=== PATIENT | female | born 1995 | race Two or more races ===

== ENCOUNTER → 2020-03-08 | Outpatient (CLI) | payer BC ==
[2020-03-08 10:21] LABS: Basophils # (auto) 0.1 10 ^3/uL (0-0.2); Basophils % (auto) 0.5 % (0.0-2.0); Eosinophils # (auto) 0 10 ^3/uL (0-0.8); Eosinophils % (auto) 0.4 % (0.0-7.0); Hematocrit 41.5 % (36.0-46.0); Hemoglobin 13.9 g/dL (12.2-16.2); Lymphocytes # (auto) 2.2 10 ^3/uL (0.4-5.4); Lymphocytes % (auto) 17.1 % (10.0-50.0); Mean Corpuscular Hemoglobin 29.9 pg (28.0-32.0); Mean Corpuscular Hgb Conc. 33.6 g/dL (32.0-36.0); Mean Corpuscular Volume 89.2 fL (80.0-100.0); Monocytes # (auto) 0.7 10 ^3/uL (0-1.3); Monocytes % (auto) 5.1 % (0.0-12.0); Neutrophils % (auto) 76.9 % (37.0-80.0); Platelet Count (auto) 289 10^3/uL (140-450); Red Blood Cells 4.66 10^6/uL (4.0-5.20); Red Cell Distribution Width 14.2 % (11.8-14.3)
[2020-03-08 10:36] LABS: Alcohol, Urine < 3.0 mg/dL (0-5); Amphetamine Screen, Urine NEGATIVE (NEGATIVE); Barbiturate Scree,Urine NEGATIVE (NEGATIVE); Benzodiazephine Screen, Urine NEGATIVE (NEGATIVE); Cannabinoid Screen, Urine POSITIVE (NEGATIVE); Cocaine Screen, Urine NEGATIVE (NEGATIVE); Opiate Scree,Urine NEGATIVE (NEGATIVE); Phencyclidine Screen, Urine NEGATIVE (NEGATIVE)
[2020-03-09 04:09] LABS: RPR Non Reactive (Non Reactive)
== END | disposition home or self-care (01) ==
LOC: LAB 09:47
PROVIDERS: ATTEND Obstetrics & Gynecology
DX: N39.0 Urinary tract infection, site not specified (principal); Z36.0 Encounter for antenatal screening for chromosomal anomalies; Z31.430 Encounter of female for testing for genetic disease carrier status for procreative management; Z34.80 Encounter for supervision of other normal pregnancy, unspecified trimester
CPT/HCPCS: 36415; 80307; 81220; 83036; 84112; 85025; 86592; 86703; 86762; 86850; 86900; 86901; 87086; 87340

== ENCOUNTER 2020-10-01 09:55 | Observation (INO) | payer BC, MEDICAID ==
[2020-10-01] MEDS ORDERED: PREN-96 PO (12:09)
== END 2020-10-01 12:10 | disposition home or self-care (01) ==
LOC: LDRP 09:55
PROVIDERS: ADMIT Obstetrics & Gynecology; ATTEND Obstetrics & Gynecology
DX: O48.0 Post-term pregnancy (principal); Z3A.40 40 weeks gestation of pregnancy
CPT/HCPCS: 59025; 76818; 81002; G0378

== ENCOUNTER 2020-10-02 00:15 | Inpatient (IN) | payer MEDICAID ==
[~2020-10-02] VITALS: Ht 170.2 cm; Wt 98.4 kg
[~2020-10-02 00:15] MED LIST: PREN-96 PO
[2020-10-02] MEDS ORDERED: LIDOCAINE 2%HCL (LOCAL ANESTH.) INJ 20ML MDV IJ ONE (01:45)
[2020-10-02] MEDS ORDERED: BUTORPHANOL TARTRATE 2 MG/1 ML VIAL IV PRN ×2 (01:45)
[2020-10-02] MEDS ORDERED: PHISODERM TOP SOLN 240ML BTL TOP PRN (01:45)
[2020-10-02] MEDS ORDERED: PROMETHAZINE HCL 25 MG/ML 1ML IV PRN (01:45)
[2020-10-02 02:11] LABS: Albumin 2.8 g/dL (3.4-5.0); Calcium 8.6 mg/dL (8.5-10.1); Potassium 3.7 mmol/L (3.5-5.1)
[2020-10-02 02:14] LABS: Bilirubin, Total 0.3 mg/dL (0.2-1.0); Total Protein 7.2 g/dL (6.4-8.2)
[2020-10-02] MEDS ORDERED: TERBUTALINE SULFATE 1 MG/ML 1ML VIAL SC ONE (02:15)
[2020-10-02] MEDS ORDERED: LACT. RINGERS/OXYTOCIN 20UNITS 1,000 ML IV ONE ×3 (02:15→08:15)
[2020-10-02] MEDS ORDERED: LACT. RINGERS/OXYTOCIN 20UNITS 1,000 ML IV SCH ×2 (02:15→09:15)
[2020-10-02 02:27] LABS: Urine Amorphous Crystal FEW /hpf (None Seen); Urine Bacteria FEW /hpf (None Seen); Urine Blood 1+ /uL (Negative); Urine Mucus FEW (None Seen); Urine Specific Gravity 1.015 (1.001-1.035); Urine WBC 5 /hpf (0 - 5)
[2020-10-02 02:30] LABS: Basophils # (auto) 0 10 ^3/uL (0-0.2); Basophils % (auto) 0.2 % (0.0-2.0); Eosinophils # (auto) 0.1 10 ^3/uL (0-0.8); Eosinophils % (auto) 0.7 % (0.0-7.0); Hematocrit 39.1 % (36.0-46.0); Lymphocytes # (auto) 2.9 10 ^3/uL (0.4-5.4); Lymphocytes % (auto) 20.4 % (10.0-50.0); Mean Corpuscular Hemoglobin 28.8 pg (28.0-32.0); Mean Corpuscular Hgb Conc. 33.2 g/dL (32.0-36.0); Mean Corpuscular Volume 86.8 fL (80.0-100.0); Monocytes % (auto) 6.8 % (0.0-12.0); Neutrophils # (auto) 10.2 10 ^3/uL (1.6-8.6); Neutrophils % (auto) 71.9 % (37.0-80.0); Nucleated Red Blood Cells % 0.3 %; Platelet Count (auto) 218 10^3/uL (140-450); Red Blood Cells 4.51 10^6/uL (4.0-5.20); Red Cell Distribution Width 15.2 % (11.8-14.3); White Blood Cell 14.2 10^3/uL (4.4-10.8)
[2020-10-02 02:37] LABS: Alcohol, Urine < 3.0 mg/dL (0-10); Amphetamine Screen, Urine NEGATIVE (NEGATIVE); Barbiturate Scree,Urine NEGATIVE (NEGATIVE); Benzodiazephine Screen, Urine NEGATIVE (NEGATIVE); Cannabinoid Screen, Urine NEGATIVE (NEGATIVE); Cocaine Screen, Urine NEGATIVE (NEGATIVE); Phencyclidine Screen, Urine NEGATIVE (NEGATIVE)
[2020-10-02 02:43] LABS: INR 0.91 (0.9-1.15); Partial Thromboplastin Time 27.1 sec (23.0-31.2)
[2020-10-02 02:48] LABS: Opiate Scree,Urine NEGATIVE (NEGATIVE)
[2020-10-02] MEDS: WITCH HAZEL-GLYCERIN PAD TOP PRN (03:17)
[2020-10-02] MEDS: DERMOPLAST 60ML BOTTLE TOP PRN (03:17)
[2020-10-02] MEDS: LACTATED RINGER'S 1,000 ML IV SCH ×2 (03:19→04:23)
[2020-10-02] MEDS: IBUPROFEN 600 MG TAB PO PRN ×4 (08:30→23:32)
--- NOTE | 2020-10-02 09:00 | NUR ---
Patient ambulated with standby assist of RN to restroom. Educated on pericare, patient demonstrated proper technique. Patient voided 500ml of urine without difficulty. All bed linens changed, bad changed into a bed. Patient ambulated to bed without difficulty. Denied dizziness or pain. Tolerated well. Educated on need to call for assistance before next void. Verbalized understanding.
--- NOTE | 2020-10-02 10:00 | NUR ---
Patient ambulated to restroom with standby assist of RN. Tolerated well. Void 600ml. Pericare performed independently. Ambulated back to bed with steady gait. No distress noted.
[2020-10-02 11:00] VITALS: BP 95/51
[2020-10-02] MEDS: DOCUSATE CALCIUM 240 MG CAP PO SCH (11:30)
--- NOTE | 2020-10-02 14:30 | NUR ---
Social work, Yari at bedside. Stated patient is cleared for discharge.
[2020-10-02 15:00] VITALS: BP 99/54
--- NOTE | 2020-10-02 15:27 | NUR ---
assessment Per consult history of positive THC in February. Patient is negative now. Patient is a 24 year old female who is alert and oriented. Patient informed me she found out she was is January and quit smoking Marijuana immediately. Patient informed me she does not plan on smoking anymore. Per patient she has all provisions for the baby. Patients is at bedside helping with . Patient informed me she has good family support. Patient is on WIC. Patient is bonding well. Per bedside nurse Mouna patient is bonding and appropriate. Patient has been counselled on not smoking around her children. Patient has been informed not to breast feed if she decides to smoke again. Patient verbalized understanding and agreed to discharge plan home with family. Patient is clear from social service stand point. Addendum: 10/02/20 at 1608 by Yari Valladares Amended: Links added.
[2020-10-02 19:30] VITALS: BP 108/51
[2020-10-02 22:44] VITALS: BP 104/54
[2020-10-03 02:42] VITALS: BP 107/58
[2020-10-03] MEDS: IBUPROFEN 600 MG TAB PO PRN ×3 (03:03→17:55)
[2020-10-03 04:06] LABS: RPR Non Reactive (Non Reactive)
[2020-10-03 06:24] VITALS: BP 116/58
[2020-10-03] MEDS: ACETAMINOPHEN 325 MG TAB PO PRN ×4 (07:04→23:17)
[2020-10-03 10:59] VITALS: BP 117/58
[2020-10-03] MEDS: DOCUSATE CALCIUM 240 MG CAP PO SCH (11:06)
[2020-10-03 14:54] VITALS: BP 119/72
--- NOTE | 2020-10-03 15:34 | NUR ---
PER DR. JOSH BRADY TO HOLD DISCHARGE TILL AM . INFANT HAVING DOUBLE PHOTOTHERAPY.
[2020-10-03 18:53] VITALS: BP 117/76
[2020-10-03 23:00] VITALS: BP 115/82
[2020-10-04] MEDS: IBUPROFEN 600 MG TAB PO PRN (02:57)
[2020-10-04 03:03] VITALS: BP 133/72
--- NOTE | 2020-10-04 06:00 | NUR ---
RECEIVED REPORT, ASSUMED CARE FROM DAYANA MARCUS
--- NOTE | 2020-10-04 06:10 | NUR ---
PT AT [facility] PREPARING TO REMOVE BABY AND BREASTFEED. DISCUSSED GOALS, PLAN OF CARE, DISCHARGE EDUCATION AND INFANT LABS. PT VERBALIZED UNDERSTANDING AND REQUESTED TYLENOL FOR PAIN 5/10. INITIATED ASSESSMENT. SEE FLOW SHEET FOR COMPLETE DATA
[2020-10-04] MEDS: WITCH HAZEL-GLYCERIN PAD TOP PRN (06:30)
[2020-10-04] MEDS: ACETAMINOPHEN 325 MG TAB PO PRN (06:30)
[2020-10-04] MEDS: DOCUSATE CALCIUM 240 MG CAP PO SCH (06:30)
[2020-10-04] MEDS: DERMOPLAST 60ML BOTTLE TOP PRN (06:30)
--- NOTE | 2020-10-04 06:30 | NUR ---
ADMIN 650 MG TYLENOL FOR 6/10 CRAMPING, THIS RN OBSERVED PT INDEPENDENTLY LATCHED INFANT 10/10 LATCH SCORE. VSS SEE FLOWSHEET FOR COMPLETE DATA
[2020-10-04 07:00] VITALS: BP 102/59
--- NOTE | 2020-10-04 08:20 | NUR ---
Discharge: Discharge instructions given as ordered. Pt encouraged to follow up with [facility] as instructed. All questions and concerns addressed. Patient verbalized understanding. Medication reconciliation completed and copy given to patient. All required/requested vaccines given and copies of vaccinations given to patient. Patient encouraged to prepare to depart unit.
--- NOTE | 2020-10-04 08:57 | NUR ---
Discharge: Patient taken to vehicle via wheelchair with all personal belongings, accompanied by staff and family member. No distress noted at time of departure, no adverse changes in status since initial assessment.
== END 2020-10-04 09:00 | disposition home or self-care (01) | DRG 560 ==
LOC: OBSVTOIN 00:15 → LDRP 00:15
PROVIDERS: ADMIT Obstetrics & Gynecology; ATTEND Obstetrics & Gynecology
PROC: 0KQM0ZZ Repair Perineum Muscle, Open Approach (ICD-10-PCS; principal; 2020-10-02)
PROC: 10E0XZZ Delivery of Products of Conception, External Approach (ICD-10-PCS; 2020-10-02)
DX: O69.81X0 Labor and delivery complicated by cord around neck, without compression, not applicable or unspecified (principal); O70.1 Second degree perineal laceration during delivery; Z37.0 Single live birth; Z3A.40 40 weeks gestation of pregnancy; Z20.828 Contact with and (suspected) exposure to other viral communicable diseases
CPT/HCPCS: 36415; 59025; 59409; 76818; 80053; 80307; 81001; 81002; 85025; 85610; 85730; 86592; 86850; 86900; 86901; 87426; 96360; 96361; 96365; 96375; G0378; J2590